=== PATIENT | female | born 2000 | race Caucasian/White ===

== ENCOUNTER 2022-12-17 18:00 | Outpatient (CLI) | payer BC ==
[2022-12-17] MEDS ORDERED: ACETAMINOPHEN TAB 325 MG TAB PO STA (19:03)
[2022-12-17 19:24] LABS: Appearance,Urine Clear (Clear); Bilirubin,Urine Negative (Negative); Blood,Urine Negative (Negative); Color,Urine Light Yellow; Glucose,Urine (UA) Negative (Negative); Ketones,Urine Negative (Negative); Leukocyte Esterase,Urine Negative (Negative); Nitrite,Urine Negative (Negative); Protein,Urine Negative (Negative); Urobilinogen,Urine <2.0 mg/dL (<2.0)
[2022-12-17 19:59] VITALS: BP 120/68; PULSE 88; RESP 16; TEMP 97.8
--- NOTE | 2023-01-07 10:25 | P.MSEPDOC ---
Presenting Problems - Arrival Data Date of Arrival on Unit: 12/17/22 Time of Arrival on Unit: 18:00 Mode of Transport: Ambulatory - Complaint OB-Reason for Admission/Chief Complaint: Headache Comment: Patient presents to triage with complaints of headache and history of preeclampsia with last . Medical History - Information : 2 Para: 1 Term: 1 : 0 Abortions: Spontaneous or Elective: 0 Number of Living Children: 1 - Gestational Age Gestational Age by SUMI (wks/days): 36 Weeks and 3 Days Review of Systems - Review of Systems Constitutional: No problems Breast: No problems ENT: No problems Cardiovascular: No problems Respiratory: No problems Gastrointestinal: No problems Genitourinary: No problems Musculoskeletal: No problems Neurological: No problems Skin: No problems Vital Signs - Temperature Temperature: 97.8 F Temperature Source: Temporal Artery Scan - Pulse Pulse Oximetery Pulse Rate: 88 Pulse Assessment Method: Pulse Oximetry - Respirations Respiratory Rate: 16 Oxygen Delivery Method: Room Air O2 Sat by Pulse Oximetry: 98 - Blood Pressure Right Arm Blood Pressure: 120/68 Blood Pressure Mean: 85 Blood Pressure Source: Automatic Cuff Medical Screen Scoring - Assessment - Baby A Baseline FHR: 135 Heart Rate - NICHD Category: Category I (Normal) NST: Reactive Physician Notification - Physician Notified Physician Notified Date: 12/17/22 Physician Notified Time: 18:50 Physician: Luisa Yen Order Received: Yes (Orders for Tylenol 650mg and urinalysis and discharge orders for home.) Maternal Triage Index - Maternal Triage Index Presenting for scheduled procedure w/no complaint: No - Stat/Priority 1 Stat Priority 1: No - Urgent/Priority 2 Urgent Priority 2: No - Prompt/Priority 3 Prompt Priority 3: No - Non-Urgent/Priority 4 Non-Urgent Priority 4: Yes Criteria Met for Priority 4: Patient presents to triage with complaints of headache and history of preeclampsia with last . Disposition - Disposition OB Disposition: Discharge to home I agree with the RN Medical Screening Exam: Yes Case reviewed; plan agreed upon as documented in EMR&OBIX.: Yes Diagnosis: headache in
== END 2022-12-17 19:58 ==
LOC: FBPOP 18:00
PROVIDERS: ATTEND Obstetrics & Gynecology
DX: O99.891 Other specified diseases and conditions complicating pregnancy (principal); Z3A.36 36 weeks gestation of pregnancy
CPT/HCPCS: 59025; 81003; 99215

== ENCOUNTER 2023-01-04 05:52 | Inpatient (IN) | payer BC, OTHER ==
[2023-01-04] MEDS ORDERED: TRANEXAMIC 1,000 MG/100ML-NACL 1,000 MG in EMPTY BAG 1 BAG IV PRN (06:19)
[2023-01-04] MEDS ORDERED: CARBOPROST TROMETHAMINE 250 MCG/ML 1 ML AMP IM PRN (06:19)
[2023-01-04] MEDS ORDERED: METHYLERGONOVINE 0.2 MG/ML 1 ML AMP IM PRN (06:19)
[2023-01-04] MEDS ORDERED: CITRIC ACID-SODIUM CITRATE 15 ML CUP PO ONE (06:19)
[2023-01-04] MEDS ORDERED: miSOPROStoL 200 MCG TAB PO PRN (06:19)
[2023-01-04] MEDS ORDERED: OXYTOCIN 10 UNIT/ML 1 ML VIAL IM PRN (06:19)
[2023-01-04] MEDS ORDERED: LACTATED RINGERS 1,000 ML IV ONE (06:36)
[2023-01-04] MEDS: LACTATED RINGERS 1,000 ML IV SCH ×4 (06:40→18:23)
[2023-01-04 06:52] LABS: Basophils % (A) 0 %; Eosinophils # (A) 0.3 k/uL (0-0.7); Eosinophils % (A) 3 %; HCT 32.6 % (34.0-46.0); HGB 11.6 gm/dL (11.4-16.0); Lymphocytes # (A) 3.1 k/uL (1.0-4.8); Lymphocytes % (A) 23 %; MCHC 35.6 g/dL (31.0-37.0); MCV 84.5 fL (80.0-100.0); Mean Platelet Volume 10.3; Monocytes # (A) 0.8 k/uL (0-1.0); Monocytes % (A) 6 %; Neutrophils # (A) 8.9 k/uL (1.3-7.7); Neutrophils % (A) 67 %; Platelet Count 202 k/uL (150-450); RBC 3.86 m/uL (3.80-5.40); RDW 14.1 % (11.5-15.5); WBC 13.4 k/uL (3.8-10.6)
[2023-01-04] MEDS ORDERED: ONDANSETRON 4 MG/2 ML VIAL ONE (07:57)
[2023-01-04] MEDS ORDERED: KETOROLAC 15 MG/ML 1 ML VIAL ONE (07:57)
[2023-01-04] MEDS ORDERED: OXYTOCIN 30 UNITS/500 ML NS BAG IV ONE (07:57)
[2023-01-04] MEDS ORDERED: MORPHINE SULFATE (PF) 0.3 MG/0.3 ML SYR ONE (07:57)
[2023-01-04] MEDS ORDERED: NALOXONE 0.4 MG/ML 1 ML VIAL IV PRN (08:56)
[2023-01-04] MEDS ORDERED: METOCLOPRAMIDE 5 MG/ML 2 ML VIAL IVP PRN (08:56)
[2023-01-04] MEDS ORDERED: diphenhydrAMINE 50 MG/ML 1 ML VIAL IVP PRN (08:56)
[2023-01-04] MEDS ORDERED: SIMETHICONE 80 MG CHEWABLE PO PRN (08:56)
[2023-01-04] MEDS ORDERED: diphenhydrAMINE 50 MG CAP PO PRN (08:56)
[2023-01-04] MEDS ORDERED: ZOLPIDEM 5 MG TAB PO PRN (08:56)
[2023-01-04] MEDS ORDERED: ONDANSETRON 4 MG/2 ML VIAL IVP PRN (08:56)
[2023-01-04] MEDS ORDERED: KETOROLAC 15 MG/ML 1 ML VIAL IVP PRN (08:56)
[2023-01-04] MEDS ORDERED: LANOLIN CREAM 5 GM TUBE TOPICAL PRN (08:56)
[2023-01-04] MEDS ORDERED: diphenhydrAMINE 25 MG CAP PO PRN (08:56)
[2023-01-04] MEDS ORDERED: OXYTOCIN 30 UNITS/500 ML NS 30 UNIT in SALINE 1 500ML.BAG IV SCH (09:00)
--- NOTE | 2023-01-04 09:04 | P.OP ---
Date of Procedure: 01/04/23 Preoperative Diagnosis: #1. 39-0/7 weeks, previous section, requesting repeat Postoperative Diagnosis: Same Procedure(s) Performed: #1. Repeat low transverse section Anesthesia: spinal Surgeon: Jeremy Massey Manager Customer #1: Aylin Benavides Estimated Blood Loss (ml): 580 IV fluids (ml): 300 Urine output (ml): 500 Pathology: none sent Condition: stable Disposition: floor Operative Findings: The patient was taken the operating room where she was delivered of a viable 6 lbs. 11 oz. baby girl with Apgars of 9 at 1 minute and 9 at 5 minutes. The placenta was delivered manually, intact, and grossly normal with a grossly normal three-vessel cord. The uterus, tubes, and ovaries were entirely normal to inspection. There was a moderate amount of scarring at the level of the fascia. The lower uterine segment was somewhat thinned out and the bladder was scarred somewhat highly on the lower uterine segment. Description of Procedure: The patient was prepped and draped in usual fashion after spinal anesthesia was administered by the anesthesiologist. A Pfannenstiel incision was made just above the level of a previous incision which was very low in relationship to the pubic symphysis. It was extended into the abdominal cavity with minimal difficulty. The bladder peritoneum was noted to be relatively high on the uterus was therefore reflected distally. A 27 m incision was made in the lower uterine segment to enter the uterus at which time clear fluid was noted. The incision was extended in both directions using the bandage scissors. The head was delivered up and through the incision where the nose and mouth were thoroughly suctioned. Remainder of the was delivered onto the field where the cord was doubly clamped, cut, and the passed resuscitative measures with weight and Apgars as noted above. cord blood was collected per protocol. A segment of cord was doubly clamped, cut, and set aside should cord gases become necessary. The placenta was delivered manually and intact as noted above. The uterus was exteriorized and the interior cavity of the uterus swept of any remaining placental or membranous fragments. The margins of the uterine incision were grasped with Ramirez clamps and the incision closed in 2 layers. The first layer was a running locking stitch of 0 chromic catgut from margin to margin followed by a running imbricating stitch of 0 chromic catgut from margin to margin. Following closure, hemostasis appeared to be excellent. The posterior cul-de-sac was suctioned with a guard and the uterine and ovarian findings were normal as noted above. The uterus was replaced within the abdominal cavity and the gutters swept of any remaining blood, fluid, or clot. Reinspection of the incision demonstrated excellent hemostasis. The parietal peritoneum was loosely reapproximated in the layer of muscles examined and made hemostatic with the Bovie. The fascia was closed with a single running stitch of 0 Vicryl proceeding from margin to margin. The subcutaneous tissues were irrigated, made hemostatic with the Bovie, and reapproximated with a running stitch of 30 plain catgut. The skin was reapproximated with a running subcuticular stitch of 4-0 Vicryl followed by half-inch Steri-Strips placed with Mastisol. Quantitative blood loss for the case was 580 mL. There were no complications. All sponge, instrument, needle counts were correct. The patient tolerated the procedure well and proceeded to the recovery room in stable condition. Both mother and infant are resting comfortably in recovery.
[2023-01-04] MEDS: diphenhydrAMINE 50 MG/ML 1 ML VIAL IVP PRN ×2 (10:36→16:15)
[2023-01-04] MEDS: IBUPROFEN 600 MG TAB PO SCH ×2 (17:38→21:45)
[2023-01-04] MEDS: ACETAMINOPHEN TAB 500 MG TAB PO SCH ×3 (17:38→23:55)
[2023-01-04] MEDS: SENNOSIDES-DOCUSATE SODIUM 1 EACH TAB PO SCH (22:53)
[2023-01-05] MEDS: IBUPROFEN 600 MG TAB PO SCH ×3 (03:49→18:05)
--- NOTE | 2023-01-05 06:33 | P.PN ---
Progress Note - Text 01/05/23 601am 32-year-old female status post . Patient seen and evaluated for postop pain control, patient has VAS of 0 with no complains of nausea vomiting.. Patient does have pruritus which should subside soon.
[2023-01-05 08:03] LABS: Basophils % (A) 0 %; Eosinophils # (A) 0.2 k/uL (0-0.7); Eosinophils % (A) 2 %; Lymphocytes # (A) 2.4 k/uL (1.0-4.8); Lymphocytes % (A) 20 %; MCH 29.8 pg (25.0-35.0); MCHC 34.4 g/dL (31.0-37.0); MCV 86.5 fL (80.0-100.0); Mean Platelet Volume 10.4; Monocytes # (A) 0.7 k/uL (0-1.0); Monocytes % (A) 6 %; Neutrophils # (A) 8.4 k/uL (1.3-7.7); Neutrophils % (A) 70 %; Platelet Count 165 k/uL (150-450); RBC 3.12 m/uL (3.80-5.40); RDW 14.8 % (11.5-15.5)
[2023-01-05 08:18] LABS: HGB 9.3 gm/dL (11.4-16.0)
[2023-01-05] MEDS: ACETAMINOPHEN TAB 500 MG TAB PO SCH ×3 (08:24→21:25)
--- NOTE | 2023-01-05 11:15 | P.PNOBGPC ---
Subjective - Subjective Principal diagnosis: s/p repeat section Interval history: The patient is doing well this morning and had no acute events overnight. She has no complaints this morning. She reports minimal lochia, passing flatus, voiding without difficulty, ambulating, and eating/drinking without nausea or vomiting. She is her without difficulty. She denies chest pain, shortness of breathing, fevers, or chills overnight. She denies pain or swelling in the legs. Patient reports: Reports appetite normal, Reports voiding normally, Reports pain well controlled, Reports ambulating normally [place]: doing well Objective - Vital Signs Latest vital signs: Vital Signs Temp Pulse Resp BP Pulse Ox 01/05/23 08:00 98.8 F 87 16 129/81 01/05/23 04:00 98.4 F 87 14 106/71 98 01/05/23 00:00 98.3 F 98 12 125/72 97 01/04/23 20:20 98.4 F 75 12 117/70 99 01/04/23 16:15 98.0 F 82 16 146/90 97 Intake and Output 01/04/23 01/05/23 01/05/23 22:59 06:59 14:59 Output Total 1930 Balance -1930 Output: Urine 1900 Uretheral (Rojas) 500 Output, Quantitative 30 Blood Loss Other: # Voids 1 1 - Exam Extremities: Present: normal Abdomen: Present: normal appearance, soft Incision: Present: normal, dry, intact Uterus: Present: normal, firm - Labs Labs: Abnormal Lab Results - Last 24 Hours (Table) 01/05/23 Range/Units 07:12 WBC 12.0 H (3.8-10.6) k/uL RBC 3.12 L (3.80-5.40) m/uL Hgb 9.3 L D (11.4-16.0) gm/dL Hct 27.0 L (34.0-46.0) % Neutrophils # 8.4 H (1.3-7.7) k/uL Assessment and Plan Assessment: 22 year old now POD#1 s/p scheduled repeat section Plan: 1. Postoperative. Patient doing well, meeting all postoperative milestones appropriately. 2. Viable female infant. At bedside, doing well and nursing well. Dispo: Anticipate discharge home tomorrow on POD#2
[2023-01-05] MEDS: SENNOSIDES-DOCUSATE SODIUM 1 EACH TAB PO SCH ×2 (19:13→19:23)
[2023-01-06] MEDS: IBUPROFEN 600 MG TAB PO SCH ×2 (00:40→08:20)
[2023-01-06] MEDS: ACETAMINOPHEN TAB 500 MG TAB PO SCH ×2 (05:20→06:45)
[2023-01-06 09:11] VITALS: BP 132/86; PULSE 77; RESP 16; TEMP 97.5
--- NOTE | 2023-01-06 09:17 | P.DS ---
Providers Date of admission: 01/04/23 05:52 Expected date of discharge: 01/06/23 Attending physician: Jeremy Massey Primary care physician: Tati Oneill - Discharge Diagnosis(es) (1) Previous section Current Visit: Yes Status: Acute (2) S/P section Current Visit: Yes Status: Acute (3) Term Current Visit: Yes Status: Acute Hospital Course: This is a 22 year old 2 now para 2 woman who is admitted at 39 weeks gestation for scheduled repeat low transverse section. She declines trial of labor. Following admission she went to the operating room where she underwent an uncomplicated repeat low transverse section. Findings at the time of surgery were significant for a liveborn female infant weighing 6 lbs. 11 oz. with Apgars of 9 at 1 minute and 9 at 5 minutes. She was noted to have a thin lower uterine segment and a moderate amount of scarring at the level of the fascia. The patient's course was unremarkable. By postoperative day #1 she was ambulating and voiding without difficulty. Her vital signs were stable and her lochia was moderate. She was breast-feeding successfully. By postoperative day #2 her incision appeared well healing. Her lochia was minimal and her vital signs remained stable. Her pain was well- controlled with oral pain medications. She was therefore discharged home with routine instructions for postoperative care and follow-up. Procedures: Repeat low transverse section Patient Condition at Discharge: Good Plan - Discharge Summary Discharge Rx Participant: No New Discharge Prescriptions: New Acetaminophen Tab [Tylenol] 1,000 mg PO Q6H tab Ibuprofen [Motrin] 600 mg PO Q6H tab Sennosides-Docusate Sodium [Senokot-S] 2 each PO BID@0800,2000 tab Continue Vit No.179/Iron/Folic [ Tablet] 1 tab PO DAILY No Action Aspirin [Adult Low Dose Aspirin EC] 81 mg PO DAILY Discharge Medication List Aspirin [Adult Low Dose Aspirin EC] 81 mg PO DAILY 12/17/22 [History] Vit No.179/Iron/Folic [ Tablet] 1 tab PO DAILY 12/17/22 [History] Acetaminophen Tab [Tylenol] 1,000 mg PO Q6H tab 01/06/23 [Rx] Ibuprofen [Motrin] 600 mg PO Q6H tab 01/06/23 [Rx] Sennosides-Docusate Sodium [Senokot-S] 2 each PO BID@0800,1999 tab 01/06/23 [Rx] Follow up Appointment(s)/Referral(s): Jeremy Massey MD [STAFF PHYSICIAN] - 2 Weeks Activity/Diet/Wound Care/Special Instructions: Follow-up in 2 weeks after surgery in the office. Call the office with any concerning signs or symptoms including fever greater than 100.5, severe abdominal pain, heavy vaginal bleeding, signs of wound infection, increased swelling or redness of the lower extremities, signs of depression. No driving for 2 weeks after surgery. No heavy lifting or vigorous activity until reevaluated in the office. No intercourse for 6 weeks after delivery. Discharge Disposition: HOME SELF-CARE
--- NOTE | 2023-01-09 17:21 | P.HPOB ---
History of Present Illness H&P Date: 01/09/23 Chief Complaint: 39-0/7 weeks, previous section requesting repeat The patient is a 22-year-old 2 para 1001 admitted at 39-0/7 weeks by good dating parameters. She is admitted for repeat low transverse section having previously undergone a section and requesting repeat. Her was entirely uncomplicated and group B strep status is negative. On labor and delivery, all signs reassuring with a category 1 heart rate tracing. Obstetrical history: 2 para 1001 with 1 term section as noted above. Laboratory workup was entirely within normal limits and blood type is Rh+. Gynecologic history: Unremarkable with no history of any infections to include STDs. Review of Systems Review of systems is confined to history of present illness. Past Medical History Past Medical History: No Reported History Additional Past Medical History / Comment(s): pre eclampsia with previous History of Any Multi-Drug Resistant Organisms: MRSA Date of last positivie culture/infection: 2005 MDRO Source:: arm Past Surgical History: Section Additional Past Anesthesia/Blood Transfusion Reaction / Comment(s): metabolizes anesthesia too quickly, had to have general for c section and then with stitches at later time. Past Psychological History: Anxiety Smoking Status: Never smoker, Vaper Past Alcohol Use History: None Reported Past Drug Use History: None Reported - Past Family History Mother Family Medical History: No Reported History Medications and Allergies Home Medications Medication Instructions Recorded Confirmed Type Aspirin [Adult Low Dose Aspirin EC] 81 mg PO DAILY 12/17/22 01/01/23 History Vit No.179/Iron/Folic 1 tab PO DAILY 12/17/22 01/04/23 History [ Tablet] Acetaminophen Tab [Tylenol] 1,000 mg PO Q6H tab 01/06/23 Rx Ibuprofen [Motrin] 600 mg PO Q6H tab 01/06/23 Rx Sennosides-Docusate Sodium 2 each PO BID@0800,2000 tab 01/06/23 Rx [Senokot-S] Allergies Allergy/AdvReac Type Severity Reaction Status Date / Time No Known Allergies Allergy Verified 01/01/23 12:24 Exam General, this is a well-developed, well-nourished white female in no acute distress. Her heart has a regular rhythm and rate without murmur. Her lungs are clear to auscultation bilaterally in all alvares. Her abdomen is gravid, nondistended, has normal active bowel sounds, soft, nontender, without any palpable masses aside from uterine fundus. Her extremities without any cyanosis , clubbing, or edema and are nontender to palpation bilaterally. Digital cervical examination is deferred. Results Result Diagrams: 01/05/23 07:12 Assessment and Plan (1) Previous section Status: Acute Code(s): Z98.891 - HISTORY OF UTERINE SCAR FROM PREVIOUS SURGERY SNOMED Code(s): 304868969 (2) Term Status: Acute Code(s): Z34.90 - ENCNTR FOR SUPRVSN OF NORMAL , UNSP, UNSP TRIMESTER SNOMED Code(s): 30435484 Plan: The patient is admitted for repeat low transverse section. The risks and, occasions of been thoroughly discussed and she has understood and agreed to proceed.
== END 2023-01-06 12:50 | disposition home or self-care (01) | DRG 788 ==
LOC: 4FBP 05:52
PROVIDERS: ADMIT Obstetrics & Gynecology; ATTEND Obstetrics & Gynecology
PROC: 10D00Z1 Extraction of Products of Conception, Low, Open Approach (ICD-10-PCS; principal; 2023-01-04 08:00)
DX: O34.211 Maternal care for low transverse scar from previous cesarean delivery (principal); O99.73 Diseases of the skin and subcutaneous tissue complicating the puerperium; L29.9 Pruritus, unspecified; Z79.82 Long term (current) use of aspirin; Z3A.39 39 weeks gestation of pregnancy; Z37.0 Single live birth
CPT/HCPCS: 85025; 86850; 86900; 86901